=== PATIENT | female | born 1995 | race Caucasian/White ===

== ENCOUNTER 2021-08-08 09:07 | Outpatient (CLI) | payer OTHER | END 2021-08-08 12:50 | disposition home or self-care (01) | LOC: PRENATAL 09:07 | PROVIDERS: ATTEND Obstetrics & Gynecology Maternal & Fetal Medicine | DX: O35.0XX1 Maternal care for (suspected) central nervous system malformation in fetus, fetus 1 (principal); O35.3XX1 Maternal care for (suspected) damage to fetus from viral disease in mother, fetus 1; O98.512 Other viral diseases complicating pregnancy, second trimester; O99.212 Obesity complicating pregnancy, second trimester; Z36.89 Encounter for other specified antenatal screening; Z3A.24 24 weeks gestation of pregnancy ==

== ENCOUNTER 2021-10-02 22:38 | Outpatient (CLI) | payer OTHER | END 2021-10-03 10:23 | disposition home or self-care (01) | LOC: OBS/DEL 22:38 | PROVIDERS: ATTEND Obstetrics & Gynecology | DX: O26.853 Spotting complicating pregnancy, third trimester (principal); O26.893 Other specified pregnancy related conditions, third trimester; K59.09 Other constipation; Z3A.32 32 weeks gestation of pregnancy ==

== ENCOUNTER 2021-10-28 16:00 | Outpatient (CLI) | payer OTHER | END 2021-10-28 16:40 | disposition home or self-care (01) | LOC: PRENATAL 16:00 | PROVIDERS: ATTEND Obstetrics & Gynecology Maternal & Fetal Medicine | DX: O26.843 Uterine size-date discrepancy, third trimester (principal); O36.8131 Decreased fetal movements, third trimester, fetus 1; O99.213 Obesity complicating pregnancy, third trimester; Z36.89 Encounter for other specified antenatal screening; Z3A.34 34 weeks gestation of pregnancy ==

== ENCOUNTER 2023-12-09 04:55 | Emergency (ER) | payer OTHER ==
[~2023-12-09] VITALS: Ht 154.9 cm; Wt 83.9 kg
[2023-12-09] MEDS ORDERED: CORTISPORIN EAR10 M1 OPHT (06:29)
== END 2023-12-09 06:34 ==
LOC: ER
DX: T16.9XXA Foreign body in ear, unspecified ear, initial encounter (principal)